=== PATIENT | male | born 1980 | race Caucasian/White ===

== ENCOUNTER 2019-03-23 15:45 | Inpatient (IN) | payer OTHER ==
[~2019-03-23] VITALS: Ht 177.8 cm; Wt 95.7 kg
[2019-03-23] MEDS ORDERED: GABAPENTIN 100100 MG PO (16:18)
[2019-03-23] MEDS ORDERED: XANAX 0.5 MG0.5 MG PO (16:45)
[2019-03-23] MEDS ORDERED: ROXICODONE30 M1 PO (16:47)
[2019-03-23 16:48] VITALS: BP 151/93
[2019-03-23] MEDS ORDERED: CYCLOBENZAPRIN7.5 MG PO (16:48)
[2019-03-23] MEDS ORDERED: LIDOCAINE35.44 GM (16:50)
[2019-03-23] MEDS ORDERED: AMITRIPTYLINE H50 M2 (16:50)
[2019-03-23] MEDS ORDERED: COLACE100 MG PO (16:51)
[2019-03-23] MEDS ORDERED: BENADRYL25 MG PO (16:51)
[2019-03-23] MEDS ORDERED: MULTI VITAMIN1 EACH PO (16:53)
[2019-03-23] MEDS ORDERED: OMEGA-31000 M1 PO (16:54)
--- NOTE | 2019-03-23 17:17 | NUR ---
cm visited with pt at bedside, new to acute rehab this evening [facility]. pt able to make his needs know. dinner arrived will cont with visit later for dcp, intro to team meeting and transition of care.
[2019-03-23 19:10] LABS: HEMATOCRIT 36.3 % (42.0-52.0); HEMOGLOBIN 11.7 gm/dL (14.0-18.0); MCH 25.1 pg (26.0-34.0); MCHC 32.2 g/dL (28.0-37.0); RBC 4.65 mil/uL (4.50-6.00); RDW 16.1 % (10.5-14.5); WBC 10.4 thou/uL (4.0-11.0)
[2019-03-23 19:29] LABS: ALBUMIN 3.2 g/dL (3.4-5.0); CALCIUM 9.5 mg/dL (8.5-10.1); CREATININE 1.2 mg/dL (0.7-1.3); MAGNESIUM 2.2 mg/dL (1.8-2.4); POTASSIUM 3.9 mmol/L (3.5-5.1); TOTAL BILIRUBIN 0.2 mg/dL (<0.1-1.0); TOTAL PROTEIN 7.5 g/dL (6.4-8.2)
--- NOTE | 2019-03-23 20:52 | NUR ---
PT ADMITTED FROM [facility] FOR INTRACTABLE LOWER BACK PAIN. 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 C/O LOT OF PAIN FROM LOWER BACK, BOTH THIGHTS TOWARD FEETS. FEET'S SKIN ARE VERY SENSITIVE, COLD TO TOUCH AND FLAKY. PATIENT IS ALERT AND ORIENTED X4. ABLE TO VOICE HIS NEEDS. REASSESSMENT PER CHART MOLDER LABELS UPPER EXTREMETIES LUNGS ARE CLEAR AND DIMINISHED. ABD IS SOFT WITH BSX4. REPORTS HAD BM THIS AM. MEDS RECONCILE DONE AND NOTIFIED DR. FERNANDEZ TO VERIFY MEDS. DOCTOR CAME AND TALKED WITH PT. PRN OXYCODONE, FLEREXIL AND ANXIETY MEDS GIVEN. HR 105 D/T ANXIETY AND PAIN. OFFERED EMOTIONAL SUPPORT. ENCOURAGED PT TO VOICE HIS NEEDS. ORIENTED PT TO REHAB SCHEUDULE. PT ATE 100% AND STILL HUNGRY. SNACK PROVIDED. PT ABLE TO USE URINAL INDEPENDENTLY HAD 900CC CLEAR URINE. REPORTS THAT PT ABLE TO GET UP WITH WALKER, DEPEND ON HIS PAIN. PT SAID HE HAD GOOD BM THIS AM. LIVES HOME WITH , HAS 2 CHILDREN AND SUPPORTIVE FAMILY. WALKED WITH WALKER AT HOME. PT ABLE TO SIGN ADMISSION CONSENT. PT/OT/ST BEAR TO BE DONE IN A.M. FALL PRECAUTION IN PLACE. CALL LIGHT WITHIN REACH. GAVE REPORT TO NIGHT NURSE TO CONTINUE TO MONITOR.
--- NOTE | 2019-03-24 01:55 | NUR ---
ASSUMED CARE FROM DAY SHIFT, PT RESTING IN BED , ON HIS LAPTOP, DISCUSSED CURRENT PLAN OF CARE, VERBALIZED UNDERSTANDING AND AGREEABLE. PAIN MEDICATION GIVEN PRESCRIBED. PT RESTING WELL THROUGHOUT HOURLY ROUNDS.
[2019-03-24 06:19] LABS: HEMATOCRIT 38.2 % (42.0-52.0); HEMOGLOBIN 12.2 gm/dL (14.0-18.0); MCH 25.1 pg (26.0-34.0); MCHC 31.9 g/dL (28.0-37.0); MCV 78.8 fL (80.0-100.0); RBC 4.85 mil/uL (4.50-6.00); RDW 16.6 % (10.5-14.5); WBC 9.9 thou/uL (4.0-11.0)
[2019-03-24 06:26] LABS: CALCIUM 9.8 mg/dL (8.5-10.1); CREATININE 1.1 mg/dL (0.7-1.3); MAGNESIUM 2.1 mg/dL (1.8-2.4); POTASSIUM 4.1 mmol/L (3.5-5.1)
[2019-03-24 07:40] VITALS: BP 142/90
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
--- NOTE | 2019-03-24 08:36 | NUR ---
ASSUMED PATIENT CARE AT 0700. MEDS PASSED AT THIS TIME. RECEIVED LANRTUS WELL LISPRO INSULIN PRIOR. RECEIVEDC VITAMIN B-12 INJECTION WITH 0900 MEDS. EATING BREAKFAST CURRENTLY. PAIN EXPERIENCED, WILL GIVE PAIN MEDICATION NOW.
--- NOTE | 2019-03-24 15:43 | NUR ---
Nutrition: pt admitted with intractable back pain, hx reflex sympathetic dystrophy. Consult received per pt request. Pt had specific questions related to treatments for his condition and dietary approaches to reduce inflammation. RD reviewed anti inflammatory foods, heart healthy guidelines and possible supplements that could be added to diet if pt chooses. On regular diet, explained ordering as desired and encouraged outside food. Good appetite, eats > 75% of meals. Snacks provided. Wt 210# with a reported high of 250# and low of 175# due to restricting many foods, especially protein. Good nutrition and healthy protein sources reviewed with pt. Was very receptive. Low risk..
[2019-03-24 19:40] VITALS: BP 131/78
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
--- NOTE | 2019-03-25 03:11 | NUR ---
ASSESSMENT: PT REMAIN ALERT AND ORIENT TIMES FOUR. C/O LOWER BACK PAIN AND TOP OF FEET PAIN. PRN PAIN MEDICAITONS PROVIDING PARTIAL RELIEF. VSS, AFEBRILE. K-PAD APPLIED TO LOWER BACK, SKIN INTACT. LIDO OINTMENT APPLIED TO FELIPE FEET, PARTIAL RELIEF OF PAIN PER PT. SLOW PROGRESS TOWARDS DC GOALS, WILL CONTINUE TO MONITOR.
[2019-03-25 07:50] VITALS: BP 146/91
--- NOTE | 2019-03-25 19:07 | NUR ---
PATIENT ALERT AND ORIENTED AND PARTICIPATES IN POC. GAVE PRN PAIN MEDS SOON NEXT DOSE AVAILABLE. ENCOURAGED PATIENT TO SEEK SUPPORT GROUP WITH SIMILAR DIAGNOSIS. PATIENT FEELS LIKE DIAGNOSIS WILL NOT GET BETTER.
[2019-03-25 20:30] VITALS: BP 142/95
[2019-03-25 22:00] VITALS: BP 136/90
--- NOTE | 2019-03-25 22:58 | NUR ---
PT ASSESSMENT COMPLETED AND VSS. MEDS GIVEN ORDERED AND WELL TOLERATED. PRN PAIN/SLEEP/ANXIETY MEDICATION WORKING WELL. PT STATES THAT HE TAKES THE SAME MEDICATION TOGETHER AT HOME AND THAT IT WORKS FOR HIM. VOIDING LARGE AMOUNT OF YELLOW URINE PER URINAL. LIDOCAINE APPLIED TO LEGS ORDERED. SLEEPING. WILL CONTINUE TO MONITOR FREQUENTLY.
[2019-03-26 08:00] VITALS: BP 153/87
--- NOTE | 2019-03-26 15:09 | NUR ---
PT ALERT AND ORIENTED TIMES FOUR. VSS, 97%RA. PT C/O PAIN PRN PAIN MEDICATIONS GIVEN WITH SOME RELEIF. PT WORKED WELL WITH PT/OT TODAY. PT TOLERATES MEDS AND MEALS. PT PROGRESSING TOWRADS POC GOALS.
[2019-03-26 20:00] VITALS: BP 153/91
--- NOTE | 2019-03-27 02:11 | NUR ---
assumed care at approx 1900 evening 03/26. pt sitting up in bed at change of shift talking on phone. pt alert and oriented x4, appropriate and cooperative. pt assist up to w/c to go to bathroom and have bm on toilet. pt flushed toilet so this scientific writer did not see bm. pt given hs meds and pain meds as ordered. pt appears to be sleeping soundly with hourly rounding checks. bed alarm on and call light in reach. will continue to monitor.
[2019-03-27 08:00] VITALS: BP 140/91
--- NOTE | 2019-03-27 11:34 | NUR ---
ASSUMED CARE OF PT AT 0715. PT IS A&OX4 AND VITAL SIGNS ARE STABLE. PT REPORTED PAIN IN LOWER BACK AND BILATERAL LOWER EXTREMITIES. PAIN MANAGED WITH PO MEDICAITONS AND PT PARTICIPTED IN SCHEDULED THERAPIES. PT WORKING TO CREATE ROUTINE TO ASSIT WITH MANAGING HIS OWN CARES. PT CALLING NURSING STAFF FOR MEDICAITONS NEEDED/ORDERED. PT REPORTS CONSTIPATION AND WAS GIVEN STOOL SOFTNER ON MED PASS. FALL PRECAUTIONS IN PLACE AND NURSING WILL CONTINUE TO MONITOR.
[2019-03-27 20:00] VITALS: BP 158/103
--- NOTE | 2019-03-28 02:02 | NUR ---
assumed care at approx 1900 evening 03/27. pt sitting up in bed at change of shift dozing off and on. pt alert and oriented x4, appropriate and cooperative. up to bathroom/toilet with w/c. pt given hs meds and po pain meds as ordered. pt sleeping off and on in nighttime. bed alarm on and call light in reach. will continue to monitor.
[2019-03-28 07:10] VITALS: BP 126/78
--- NOTE | 2019-03-28 10:14 | NUR ---
ASSUMED CARE AT 0700. PATIENT IS ALERT AND ORIENTED X4. PATIENT HAS BILATERAL L.E. PARYLSIS. FEET AND LEGS VERY TENDER. PATIENT HAS GOOD UPPER BODY STRENGTH. LUNGS ARE CLEAR AND DEMIMISHD. ABD IS SOFT WITH BSX4. UP IN BED FOR BREAKFAST. FALL AND SAFETY PROTOCOLS IN PLACE . C/O PAIN IN HIS BACK. PATIENET MEDICATED WITH PRN PAIN MEDS. CONTINUES TO PROGRESS SLOWLY TOWARDS D/C GOALS. WILL CONTINUE TO MONITER.
[2019-03-28 22:30] VITALS: BP 146/99
--- NOTE | 2019-03-29 00:03 | NUR ---
PT ASSESSMENT COMPLETED AND VSS. MEDS GIVEN ORDERED AND WELL TOLERATED. FALL PRECAUTIONS IN PLACE. PRN PAIN AND ANXIETY MEDICATION WORKING WELL. DENIES NEEDS. SLEEPING WELL. WILL CONTINUE TO MONITOR FREQUENTLY.
[2019-03-29 08:51] VITALS: BP 149/97
--- NOTE | 2019-03-29 19:09 | NUR ---
PATIENT ALERT AND ORIENTED AND HAS CHRONIC NEUROLOGICAL PAIN. LET NURSE PRACTICIONER KNOW ABOUT THE CHRONIC PAIN. PATIENT HAD BM TODAY AND SLEPT IN THE AFTERNOON.
[2019-03-29 19:35] VITALS: BP 150/96
[2019-03-29 22:00] VITALS: BP 146/84
--- NOTE | 2019-03-29 22:27 | NUR ---
PT ASSESSMENT COMPLETED AND VSS. MEDS GIVEN ORDERED AND WELL TOLERATED. FALL PRECAUTIONS IN PLACE. VOIDING LARGE AMOUNT OF YELLOW URINE PER URINAL. PRN PAIN MEDICATION HELPFUL. SLEEPING. WILL CONTINUE TO MONITOR FREQUENTLY.
[2019-03-30 07:30] VITALS: BP 117/84
--- NOTE | 2019-03-30 07:47 | NUR ---
ASSUMED CARE AT 0700. PATIENT IS ALERT AND ORIENTED X4. PATIENT HAS GOOD UPPER BODY STRENGTH, PARALYSIS IN HIS LOWER EXTREMITIES. PATIENT HAS +1 EDEMA IN HIS LOWER EXTREMITIES. LUNGS ARE CLEAR AND DEMINISHED. ABD IS SOFT WITH BSX4. BREAKFAST AT BEDSIDE. FALL AND SAFETY PROTOCOLS IN PLACE. C/O BACK PAIN. MEDICATED WITH PRN PAIN MED. CONTINUES TO PROGESS TOWARDS D/C GOALS. WILL CONTINUE TO MONITER.
--- NOTE | 2019-03-30 13:44 | NUR ---
team meeting, recommendation: with hh ( pt, ot, st, nursing), possible will need wheel chair standard. he will need cell phone near by to call for help if needed, cont with medication management. couples therapy outpt and behavior pain outpt management.
[2019-03-30 19:25] VITALS: BP 135/86
--- NOTE | 2019-03-31 00:23 | NUR ---
assumed care at approx 1900 evening 03/30. pt awake at change of shift working on his computer in room. pt voiding large amt urine in urinal. pt c/o severe pain and given po pain meds as ordered. pt appears to be sleeping at present. bed alarm on and call light in reach. will continue to monitor.
[2019-03-31 07:40] VITALS: BP 142/85
--- NOTE | 2019-03-31 10:00 | NUR ---
cm visited with pt to see if wheel chair was delivered here if his family would be able to get him home from [facility] emergency department and checked to see on hh again if had a preference " we don't care as long as they go to [facility] [place] where i live"/inderjit. referral to be sent to [facility] emergency department for wheel chair and [facility].
--- NOTE | 2019-03-31 10:01 | NUR ---
ASSUMED CARE AT 0700. PATIENT IS ALERT AND ORIENTED X4. PATIENT MOVES UPPER EXTREMITIES. PATIENT HAS LE PARALYSIS. LUNGS ARE CLEAR. ABD IS SOFT WITH BSX4. VOIDING PER URINAL. PATIENT HAS FACIAL REDNESS. AQUAPHOR AND HYDROCORTIZONE CREAM APPLIED. VOIDS PER URINAL. UP AT BEDSIDE FOR MEALS. FALL AND SAFETY PROTOCOLS IN PLACE. C/O PAIN AT 0615. MEDICATED WITH PRN PAIN MED. CONTINUES TO PROGESS TOWARDS D/C GOALS. WILL CONTINUE TO MONITER.
--- NOTE | 2019-03-31 10:23 | NUR ---
DISCHARGE PLANNING. ANTICIPATED DISCHARGE PLANNED FOR THE March, PER UNIT CM. PATIENT TO DISCHARGE TO HOME WITH HOME HEALTH SERVICES AND WHEELCHAIR FOR HOME USE. WHEELCHAIR RX AND FACESHEET FAXED TO [facility], FOR WHEELCHAIR NEEDS. VERIFIED RECEIVED, GARETH AND/OR [facility] TO DELIVER WHEELCHAIR TO PATIENT AT BEDSIDE PRIOR TO DISCHARGE. FOLLOWING.
[2019-03-31 12:22] VITALS: BP 142/85
--- NOTE | 2019-03-31 13:50 | NUR ---
Nutrition followup: pt eating 75-100% of meals on regular diet. Stable weights over admit. Prior education provided on healthy diet and anti inflammatory foods. [id number]. On supplement. Planned D/C 04/02. Continue as low risk.
--- NOTE | 2019-03-31 17:36 | NUR ---
Patient participated in community reintegration on 03/31/19 with OT. Refer to documentation by OT.
[2019-03-31 19:33] VITALS: BP 149/102
--- NOTE | 2019-04-01 02:37 | NUR ---
assumed care at approx 1900 evening 03/31. pt sitting up in bed at change of shift talking on phone. pt appropriate and cooperative, alert and oriented x4. pt voiding per urinal. pt given hs meds and pain meds as ordered. pt appears to be sleeping soundly with hourly rounding checks. bed alarm on and call light in reach. will continue to monitor.
[2019-04-01 07:25] VITALS: BP 123/77
--- NOTE | 2019-04-01 09:30 | NUR ---
cm returned call to pt mom leif " just have question about dc for tomorrow"/leif. education that having speaker phone call today between 0930 and 10p with therapy so pt can hear the expectations. " oh ok i will look forward to the phone call"/leif.
--- NOTE | 2019-04-01 09:35 | NUR ---
cm met with pt, ot, st, and floor covering contractor for MD, all able to come to pt room for phone conference requested by pt . phone call lasted 45min. inderjit, roxy, and mom leif had many question rt medication, what was cont, refills, when and how to take medication. what was changed or increased. floor covering contractor and team education on follow up with pcp and get referral for pain management since pt had chronic pain for long time now, they all wanted referral to come from here to try and use [facility] outpt dr [facility]. pt noted pt cont to ask same question about medication. st, ot and pt provided education and tools family can use at home. pt wheel chair from [facility] [place] was delivered last evening. cm education on hh (pt, ot, st , and nursing from [facility]), no driving until cleared by davina albright. recommendation for tub transfer bench for home from ot. his mom stated she would look for one or they already have one. plan is for inderjit to stay with his mom at [address] [place] [phone] during the day and then when off work he go home with kid and . cm passed on information to [facility]. pt mom is planning on coming to hospital around 11a, to get rx to have filled before taking him home around 1300 and if has question for therapy they will be addressed. will cont following as needed for dc needs.
--- NOTE | 2019-04-01 12:19 | PLAN ---
[facility] [place] [address] REHAB UNIT PLAN OF CARE Name: EUNICE CENTENO III Room #: 505-P ADM IN M.R.#: [id number] Admission: 03/23/19 Attend Phys: Khurram Douglas MD Discharge: Date of : 76 Report #: [id number] THIS REPORT FOR: //name// CC: TANYA Douglas Physician staff DATE OF SERVICE: 03/25/2019 SUBJECTIVE: The patient was seen back today in followup. He is in no distress. He does have some tooth discomfort and requested some Anbesol topically which I ordered. Functionally, he has been working in therapies with transfers, min assist, ambulating 15 feet min assist with a front-wheeled walker. In occupational therapy, lower body dressing is mod assist, upper body dressing is supervision. In speech, his memory is being evaluated. ASSESSMENT: 1. Reflex sympathetic dystrophy post-electrocution. 2. Severe pain disorder. 3. Intractable low back pain. 4. Generalized anxiety disorder. 5. Concerns regarding cognition. 6. Psychosocial needs. 7. Tooth discomfort, Anbesol ordered. PLAN: The overall plan of care is based on the preadmission screen, post-admission physician evaluation and information garnered from therapy assessments. 1. Estimated length of stay is probably around 10 days to 2 weeks and likely longer as needed. 2. Medical prognosis is reasonably good. 3. Anticipated interventions includes the interdisciplinary acute inpatient rehabilitation program. 4. Anticipated functional outcomes would be for the patient to become modified independent with transfers, mobility and ADLs as well as cognition, so that he can return back to the home setting. 5. Discharge destination would be back home with his . 6. Expected therapy by discipline includes PT, OT and speech 1 hour per day, each five days a week throughout the duration of the acute inpatient rehabilitation stay. <ELECTRONICALLY SIGNED> By: Khurram Douglas MD 04/01/19 1219 0820 [id number] Khurram Douglas MD /nt
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
--- NOTE | 2019-04-01 18:43 | NUR ---
ASSUMED CARE OF PT AT APPROX 0700. PT IS ALERT AND ORIENTED X4. DENIES PAIN AND SOA. EVEN NONLABORED BREATHING. ASSESSMENT CHARTED. TREATED PAIN PRN WITH PARTIAL RELIEF. MOTHER CALLED IN REGARDING DC SCRIPT OF PAIN MEDS STATING THEY WILL NEED MORE THAN 30 PILLS. CONTACTED [facility] [employer] BUS DRIVER [place] REGARDING ISSUE ANMD ROMAIN STATED WHE WILL GO OVER WITH MOTHER TOMORROW THAT SHE WILL NOT GIVE MORE THAN 30 PILLS ON RX AT TIME OF DC. PT WORKED WITH THERAPY, DENIES FURTHER QUESTIONS OR CONCERNS CURRENTLY. NAD NOTED. WILL CONT TO MONITOR.
[2019-04-01 19:39] VITALS: BP 141/98
--- NOTE | 2019-04-02 03:08 | NUR ---
Assumed pt care at 1900. Pt A/OX4,VSS. C/o back/legs/foot pain especially with activity medicated per EMAR with relief reported. Pt is able to transfer/slide from WC to bed with standby assist.Continent of B&B,voiding per urinal at NOC. Resting quietly with no distress at this time,will continue to monitor pt.
[2019-04-02] MEDS ORDERED: TYLENOL325 MG PO (07:41)
[2019-04-02] MEDS ORDERED: AQUAPHOR85 GM TOP (07:41)
[2019-04-02] MEDS ORDERED: REMERON15 MG PO (07:41)
[2019-04-02] MEDS ORDERED: NEURONTIN 300M300 M2 PO (07:41)
[2019-04-02] MEDS ORDERED: LIDOCAINE35.44 GM TOP (07:41)
[2019-04-02] MEDS ORDERED: VITAMIN B-12500 MCG PO (07:41)
[2019-04-02] MEDS ORDERED: PROTONIX40 M1 PO (07:41)
[2019-04-02] MEDS ORDERED: [UNRECOGNIZED DRUG - REMARK] (07:46)
[2019-04-02 09:00] VITALS: BP 123/84
--- NOTE | 2019-04-02 10:00 | NUR ---
cm received phone call from his mom leif letting therapy to know that running little behind and suppose to be there for car transfer training at 1130. cm passed on information to therapy team.
[2019-04-02 11:08] VITALS: BP 142/85
[2019-04-02 11:12] VITALS: BP 142/85
[2019-04-02 11:22] VITALS: BP 142/85
[2019-04-02 11:29] VITALS: BP 142/85
[2019-04-02 14:10] VITALS: BP 142/85
--- NOTE | 2019-04-02 21:28 | NUR ---
ASSUMED CARE OF PT AT 0715. PT IS A&OX4 AND VITAL SIGNS ARE STABLE. ORDERS GIVEN TO DISCHARGE PT FROM UNIT THIS SHIFT. PT REPORTED PAIN IN BACK, LEGS, AND FEET BILATERALLY AND WAS TREATED WITH ORDERED PAIN MEDICAITONS. FAMILY AND PT GIVEN THERAPY TEACHING PRIOR TO DISHCARGE. PT MOTHER GIVEN RX SCRIPTS, REPORTED "HE WONT BE ABLE TO SEE HIS (PCP) UNTIL AFTER HE RUNS OUT OF HIS PAIN MEDS IF HE TAKES IT EVERY 4 HOURS." CONCERNS WERE ADDRESSED BY SENIOR GL ACCOUNTANT WITH MOTHER AND SENIOR GL ACCOUNTANT STATES THAT SHE WILL BE UNABLE TO WRITE SCRIPT FOR LARGER AMOUNT OF MEDICAITON. THIS NURSE RECOMMENEDED TO MOTHER TO CONTACT PCP OFFICE AND REQUEST TO TALK TO THE PROVIDER COVERING FOR PCP UNTIL HE RETURNS TO OFFICE OR TO CONTACT PAIN CLINIC THAT PT WAS REFERED TO AND SEE IF THEY CAN GET PT IN EARLIER THAN PCP. DISCHARGE PAPERS SIGNED, EDUCATION GIVEN, BELONGINGS REMOVED FROM ROOM, PT PAIN TREATED PRIOR TO D/C, AND PT AND FAMILY TRANSPORTED TO MEDICAL MALL ENTRANCE WITH [facility] TRANSPORT AT APPROXIMATELY 1400.
--- NOTE | 2019-04-03 15:28 | HC ---
[facility] [place] [address] CONSULTATION Name: EUNICE CENTENO III Room #: 505-P [facility] M.R.#: [id number] Admission: 03/23/19 Attend Phys: Khurram Douglas MD Discharge: 04/02/19 Date of : 76 Report #: [id number] THIS REPORT FOR: //name// CC: TANYA Douglas Physician staff DATE OF SERVICE: 03/27/2019 NEUROBEHAVIORAL STATUS EXAM ATTENDING PHYSICIAN: Khurram Douglas MD FERRYBOAT OPERATOR CABLE: Gray Main, PhD CLINICAL PRESENTATION: The patient is a 39-year-old male admitted to the rehabilitation unit at [facility] for comprehensive inpatient rehabilitation program. He was admitted with a diagnosis of reflex sympathetic dystrophy. He is reported to have had an electrocution about 19 years ago. Severe and chronic low back and bilateral lower extremity pain is reported. Pain is described as neuropathic. Variability in memory is also described. 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 His diagnoses on admission to the rehab unit is reflex sympathetic dystrophy post-electrocution, severe pain disorder, intractable low back pain, generalized anxiety disorder, concern regarding cognition and psychosocial stress. A complete description of his medical condition and history can be found in his medical record. Neuropsychological consultation was requested to provide assistance in the assessment of cognitive and emotional status and to provide recommendations and services. As noted prior to this hospitalization, he was living independently with the assistance of his in their home. His indicates that the electrocution was 19 years ago with worsening of his condition about 3-4 years ago. He is independent with instrumental activities of daily living. The patient describes anxiety regarding the relationship with his and conflict that is associated with his management of pain. 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 The patient indicates the injury as having been 10 years ago, although his indicated 19 years ago and medical records indicate 12 years ago, so there is variability in the initial onset of his injury. He has 2 children. The children are reported to have Tourette's syndrome. TECHNIQUES UTILIZED: Clinical interview, staff consultation, mini mental status [address] [address] CONSULTATION Name: EUNICE CENTENO III Room #: 505-P [facility] .R.#: [id number] Admission: 03/23/19 Attend Phys: Khurram Douglas MD Discharge: 04/02/19 Date of : 76 Report #: [id number] exam 2 standard version, family interview -- and clock drawing. EXAMINATION FINDINGS: The patient was alert and cooperative with the assessment. He accurately described events surrounding his admission. His mood appeared anxious and he was restless. He describes his symptoms to include tiredness, fatigue, anxiety, depression and variability in short-term memory. There are no reported changes in appetite, sleep or verbal fluency. There is no substance abuse reported. His performance on the MMSE 2 brief version was 12/16, which is T score of less than 1. He was 3/3 for initial registration, 5/5 for orientation to time, 3/[address] and 1/3 for immediate recall of 3 items after a brief time delay and distraction. His performance improved on the MMSE 2 standard version to a raw score of 25/30, which is a T score 37 and percentile rank at 10. He was 5/5 for serial sevens, 2/2 for naming, 1/1 for repetition, 3/3 for auditory comprehension. He could read and follow single command and write a sentence. Some difficulty with copying was noted in visual spatial construction. Mild deficits in clock drawing were noted with hand placement and structure of the clock. While there are mild deficits suggested in cognition, his primary concerns were with pain management and marital conflict. Interview with his indicates that he has had difficulty with memory and requires frequent reminders. He will forget appointments and needs repetition. She also feels that his mood has been more depressed in the last 6-8 months. Grooming and hygiene can be poor and needing constant reminders for ADLs. She also describes a degree of frustration in his overall ability to maintain family engagement. They have not had previous counseling or therapy. DIAGNOSTIC IMPRESSION: Generalized anxiety disorder Persistent depressive disorder Pain Disorder. Mild neurocognitive disorder, unspecified. RECOMMENDATIONS: The patient may benefit from the use of antidepressant medication with pain management features, example Cymbalta. Individual psychotherapy with a behavioral pain management focus is indicated. Ongoing psychological counseling for the patient and his . Marital counseling is indicated to assist in overall adjustment to disability. [address] [address] CONSULTATION Name: EUNICE CENTENO III Room #: 505-P [facility] M.R.#: [id number] Admission: 03/23/19 Attend Phys: Khurram Douglas MD Discharge: 04/02/19 Date of : 76 Report #: [id number] Ongoing psychotherapy and psychiatric consultation to assist in the management of medications is indicated. Variability in cognition may be a result of narcotic and sedating medications. Reduce as medically appropriate and supervised medication that can have an adverse effect on cognition. However, at times medication that affects cognition is necessary for medical management. Thank you very much for allowing me to provide the consultation on this patient. <ELECTRONICALLY SIGNED> By: Gray Main, PhD 04/03/19 [id number] Gray Main, PhD /nt
== END 2019-04-02 13:50 | disposition home health service (06) | DRG 74 ==
LOC: ENTRNSPT 04-02 13:40 → EDTRNSPTSTS 04-02 13:43
PROVIDERS: Internal Medicine; Nurse Practitioner Family; ADMIT Physical Medicine & Rehabilitation
DX: G90.50 Complex regional pain syndrome I, unspecified (principal); M54.5 Low back pain; F41.1 Generalized anxiety disorder; F43.10 Post-traumatic stress disorder, unspecified; F32.9 Major depressive disorder, single episode, unspecified; G31.84 Mild cognitive impairment of uncertain or unknown etiology; E53.8 Deficiency of other specified B group vitamins; G62.9 Polyneuropathy, unspecified; Z88.6 Allergy status to analgesic agent; Z88.8 Allergy status to other drugs, medicaments and biological substances; Z79.899 Other long term (current) drug therapy
CPT/HCPCS: 10112